=== PATIENT | male | born 1985 | race African-American/Black ===

== ENCOUNTER 2018-07-17 17:05 | Emergency (ER) | payer OTHER ==
[~2018-07-17] VITALS: Ht 180.3 cm; Wt 83.9 kg
--- NOTE | 2018-07-17 17:30 | Emergency Room Report ---
History of Present Illness General Chief Complaint: Skin Rash/Abscess Source: Patient Present Illness HPI 32 YO Male Pt. presents to the ED c/o 06/29 in severity pain, swelling, and erythema of right jaw line x 4 days. pt. reports hx of this and it resolved with oral abx. denies fevers or chills. Pt also requests refill of Ventolin and albuterol nebs. He denies cough he reports some wheezing that is minimal. Patient denies recent illness he denies productive sputum. Patient denies swollen tender lymph nodes or pain with opening his mouth. Patient denies changes in size of his abscess with consumption of food. Allergies: Uncoded Allergies: FISH (Allergy, Unknown, 07/17/18) Patient History Past Medical History: see triage record Past Surgical History: none Pertinent Family History: none Immunizations: UTD Reviewed Nursing Documentation: PMH: Agreed; PSxH: Agreed Nursing Documentation-PMH Past Medical History: No History, Except For Hx Asthma: Yes Review of Systems All Other Systems: negative except mentioned in HPI Physical Exam Vital Signs Date Time Temp Pulse Resp B/P (MAP) Pulse Ox O2 Delivery O2 Flow Rate FiO2 07/17/18 17:18 98.5 83 16 121/80 94 Room Air 98.4 Sp02 EP Interpretation: reviewed, normal General Appearance: no apparent distress, alert, GCS 15, non-toxic Head: normocephalic, atraumatic Eyes: bilateral eye normal inspection, bilateral eye PERRL ENT: hearing grossly normal, normal voice, other - 0.5 cm small abscess and cellulitis to the right jaw line, no LAD, no palpable fluctuance. Neck: full range of motion Respiratory: chest non-tender, lungs clear, normal breath sounds, speaking full sentences, wheezing - scant expiratory bilaterally Cardiovascular #1: regular rate, rhythm, normal capillary refill Musculoskeletal: back normal, gait/station normal, normal range of motion, non- tender Neurologic: alert, oriented x3, responsive, motor strength/tone normal, sensory intact, normal gait, speech normal, grossly normal Psychiatric: judgement/insight normal Skin: normal color, no rash, warm/dry, well hydrated, other - 0.5cm small abscess and cellulitis to the right jaw line, no LAD, no palpable fluctuance. Lymphatic: no adenopathy Medical Decision Making PA Attestation Dr. Underwood is my supervising Physician whom patient management has been discussed with. Diagnostic Impression: Primary Impression: Abscess Additional Impression: Asthma Qualified Codes: J45.998 - Other asthma ER Course 32 YO Male Pt. presents to the ED c/o 06/29 in severity pain, swelling, and erythema of right jaw line x 4 days. pt. reports hx of this and it resolved with oral abx. denies fevers or chills. Pt also requests refill of Ventolin and albuterol nebs. He denies cough he reports some wheezing that is minimal. Patient denies recent illness he denies productive sputum. Patient denies swollen tender lymph nodes or pain with opening his mouth. Patient denies changes in size of his abscess with consumption of food. Ddx considered but are not limited to cellulitis, abscess, cystic acne, necrotizing fasciitis, insect bite. Vital signs: are WNL, pt. is afebrile H&PE are most consistent with small abscess and cellulitis to the right jaw line, no LAD, no palpable fluctuance. ORDERS: none required at this time, the diagnosis is clinical ED INTERVENTIONS: - DISCHARGE: At this time pt. is stable for d/c to home. Will provide printed patient care instructions, and any necessary prescriptions. Care plan and follow up instructions have been discussed with the patient prior to discharge. Last Vital Signs Date Time Temp Pulse Resp B/P (MAP) Pulse Ox O2 Delivery O2 Flow Rate FiO2 07/17/18 17:18 98.5 83 16 121/80 94 Room Air 98.4 Disposition: HOME, SELF-CARE Condition: Stable Scripts Albuterol Sulfate* (ALBUTEROL SULFATE HHN*) 2.5 Mg/3 Ml Vial.neb 3 ML INH Q4H PRN for Shortness of Breath, #30 EA Prov: Josefina Zamarripa 07/17/18 Albuterol Sulfate* (ALBUTEROL SULFATE MDI*) 8.5 Gm Hfa.aer.ad 2 PUFF INH Q3H, #1 INH 0 Refills Prov: Josefina Zamarripa 07/17/18 Doxycycline Hyclate* (VIBRAMYCIN*) 100 Mg Capsule 100 MG ORAL EVERY 12 HOURS for 7 Days, #14 CAP 0 Refills Prov: Josefina Zamarripa 07/17/18 Patient Instructions: Abscess Additional Instructions: Take medications as directed. Follow up with a Primary Care Provider in 3-5 days, even if your symptoms have resolved. --Please review list of primary care clinics, if you do not already have a primary care provider Return sooner to ED if new symptoms occur, or current symptoms become worse. - Please note that this Emergency Department Report was dictated using [employer] software, occasionally this can lead to erroneous entry secondary to interpretation by the dictation equipment. Josefina Zamarripa Jul 17, 2018 17:30
[2018-07-17] MEDS ORDERED: ALBUTEROL2.5 MG/3 M INH (17:44)
[2018-07-17] MEDS ORDERED: ALBUTEROL SULF8.5 GM INH (17:44)
[2018-07-17] MEDS ORDERED: VIBRAMYCIN100 MG ORAL (17:44)
[2018-07-17 17:46] VITALS: BP 118/74
[2018-07-17 18:00] VITALS: BP 118/74
== END 2018-07-17 18:08 | disposition home or self-care (01) ==
LOC: EMR 18:03
DX: M27.2 Inflammatory conditions of jaws (principal); J45.909 Unspecified asthma, uncomplicated; Z91.013 Allergy to seafood
CPT/HCPCS: 99283